=== PATIENT | male | born 1965 | race Caucasian/White ===

== ENCOUNTER → 2017-01-13 | Outpatient (CLI) | payer BC ==
--- NOTE | 2017-01-13 14:23 | RAD ---
Indication right flank pain. Axial images were obtained through the abdomen and pelvis. The examination was tailored for the detection of renal and/or ureteral calculi. No IV or gastrointestinal contrast was administered. Note is made of a similar examination 10/26/2012. The lung bases are unremarkable. There is a tiny granuloma at the left lung base, unchanged. The liver and spleen appear unremarkable and the gallbladder appears grossly normal. No pancreatic abnormality is seen. There are no adrenal masses. There are no renal calculi on either side. There is, however, hydronephrosis and hydroureter on the right to the level of a 3 mm calculus approximately 2 to 3 cm proximal to the UVJ. There is some mild retroperitoneal adenopathy. This is likely incidental and appears similar to the previous exam. IMPRESSION: 2 to 3 mm calculus in the distal right ureter with associated moderate obstructive uropathy PQRS Compliance Statement: One or more of the following individualized dose reduction techniques were utilized for this examination: 1. Automated exposure control 2. Adjustment of the mA and/or kV according to patient size 3. Use of iterative reconstruction technique
== END | disposition home or self-care (01) ==
LOC: CT 13:18
PROVIDERS: ATTEND Family Medicine
DX: N13.2 Hydronephrosis with renal and ureteral calculous obstruction (principal); J84.10 Pulmonary fibrosis, unspecified
CPT/HCPCS: 74176